=== PATIENT | female | born 1990 | race Caucasian/White ===

== ENCOUNTER 2019-06-02 14:33 | Observation (INO) | payer OTHER ==
[2019-06-02 15:11] VITALS: O2SAT 94
[2019-06-02 16:30] LABS: Hematocrit 35.9 % (35-47); Hemoglobin 12.3 gm/dl (12.0-16.0); Mean Cell Volume 90.7 fl (78-100); Mean Corpuscular Hgb Concent. 34.3 g/dl (32-36); Mean Platelet Volume 11.4 fl (6-9.5); Platelet Count 234 K/mm3 (150-450); Red Blood Count 3.96 M/mm3 (4.1-5.4); Red Cell Distribution Width 13.4 % (11.5-14.0); White Blood Count 15.3 K/mm3 (4.0-10.5)
[2019-06-02 17:21] LABS: ALBUMIN 3.7 g/dL (3.5-5.0); ALKALINE PHOSPHATASE 76 U/L (38-126); ANION GAP 14.9 MEQ/L (5-15); BLOOD UREA NITROGEN 5 mg/dL (7-17); CHLORIDE 104 mmol/L (98-107); Calcium 9.6 mg/dL (8.4-10.2); Carbon Dioxide 24 mmol/L (22-30); Creatinine 1 0.42 mg/dL (0.52-1.04); Glucose 78 mg/dL (74-106); Potassium 3.7 mmol/L (3.5-5.1); SGOT/AST 21 U/L (14-36); SGPT/ALT 15 U/L (0-35); SODIUM 139 mmol/L (137-145); TSH, 3RD Generation 0.895 mIU/L (0.47-4.68)
[2019-06-02 18:45] VITALS: BP 128/74; PULSE 101
== END 2019-06-02 17:55 | disposition home or self-care (01) ==
LOC: OB 14:33
PROVIDERS: ADMIT Family Medicine; ATTEND Family Medicine
DX: Z34.03 Encounter for supervision of normal first pregnancy, third trimester (principal)
CPT/HCPCS: 36415; 80053; 84443; 85027; G0378

== ENCOUNTER 2019-08-03 07:08 | Observation (INO) | payer OTHER ==
--- NOTE | 2019-08-03 08:57 | XRAY ---
Indication: Decreased PENNY. Ultrasound biophysical profile study was performed. Comparison: None. There is a single viable intrauterine with heart rate 142 BPM. Four-quadrant PENNY is 5.9 cm, previously 9.7 cm on July 30, 2019. 2 points given for breathing, movements, tone, and qualitative amniotic fluid volume. Impression: Total biophysical profile score is 8 out of 8.
[2019-08-03] MEDS ORDERED: BRETHINE 1 MG/ML SQ PRN (09:46)
[2019-08-03] MEDS ORDERED: Zofran 4 MG/2 ML VIAL IV PRN (11:58)
[2019-08-03] MEDS ORDERED: TYLENOL EXTRA STRENGTH 500 MG PO PRN (11:58)
[2019-08-03 17:43] LABS: Amphetamine,Urine NEGATIVE (NEGATIVE); Barbiturate,Urine NEGATIVE (NEGATIVE); Benzodiazepine,Urine NEGATIVE (NEGATIVE); Cocaine,Urine NEGATIVE (NEGATIVE); Methadone,Urine NEGATIVE (NEGATIVE); Opiate,Urine NEGATIVE (NEGATIVE); PCP,Urine NEGATIVE (NEGATIVE); THC,Urine NEGATIVE (NEGATIVE)
[2019-08-03] MEDS ORDERED: PITOCIN 30 UNITS/ LR 500 ML 500 ML IV SCH ×2 (22:00)
[2019-08-03] MEDS ORDERED: Lactated Ringers 1,000 ML IV SCH (22:00)
[2019-08-03] MEDS ORDERED: Cervidil 10 MG VAG SCH (22:00)
[2019-08-03 22:36] LABS: Absolute Neutrophil Ct (ANC) 10.32 (1.4-6.9); BASOPHIL % 0.2 % (0.0-0.4); Basophil (Absolute #) 0.03 (0-0.4); Eosinophil % 1.4 % (0.00-5.0); Hematocrit 35.9 % (35-47); Hemoglobin 12.1 gm/dl (12.0-16.0); Mean Cell Volume 91.3 fl (78-100); Mean Corpuscular Hemoglobin 30.8 pg (26-32); Mean Corpuscular Hgb Concent. 33.7 g/dl (32-36); Mean Platelet Volume 11.8 fl (6-9.5); Monocyte (Absolute #) 1.03 (0.0-1.3); Monocytes % 7.1 % (0.0-12.0); Neutrophil % 71.3 % (36.0-66.0); Platelet Count 220 K/mm3 (150-450); Red Blood Count 3.93 M/mm3 (4.1-5.4); Red Cell Distribution Width 13.5 % (11.5-14.0); White Blood Count 14.5 K/mm3 (4.0-10.5)
[2019-08-03] MEDS: Lactated Ringers 1,000 ML IV SCH (22:57)
[2019-08-04] MEDS: Lactated Ringers 1,000 ML IV SCH ×2 (03:51→06:15)
--- NOTE | 2019-08-04 08:34 | PCM.NOTE ---
Date and Time: 08/04/19830 Subjective Assessment: Pt's induction was started yesterday after PENNY or 5.9, decreased reactivity, and pt at 38w 6d. She received cervadil x 12 h then start pitocin in the night. When her pitocin got up to 6, baby had decreased variability and reactivity, so pitocin was stopped. It was restarted again this morning with similar results so was stopped again. Pt feels some mild lower abd cramping this morning. She is having irregular contractions on the monitor. Pt received fluids overnight. Objective Exam General Appearance: no apparent distress, alert Neurologic Exam: oriented x 3, cooperative Skin Exam: normal color, warm, dry, No rash Ears, Nose, Throat Exam: moist mucous membranes Neck Exam: normal inspection Respiratory Exam: No respiratory distress Gastrointestinal/Abdomen Exam: other (abd gravid) Extremity Exam: swelling (trace bilat LE), No tenderness OBJECTIVE DATA Vital Signs: Vital Signs - 24 hr Temp Pulse Resp BP BP 08/04/19 06:45 94 H 112/71 08/04/19 06:30 103 H 124/81 08/04/19 06:15 111 H 130/84 08/04/19 06:00 111 H 130/84 08/04/19 05:45 96 H 123/80 08/04/19 05:30 93 H 116/75 08/04/19 05:15 93 H 111/71 08/04/19 04:45 91 H 128/71 08/04/19 04:30 87 129/70 08/04/19 04:15 90 134/69 08/04/19 04:00 90 135/85 134/69 08/04/19 03:45 98.1 F 81 113/66 08/04/19 03:30 92 H 122/71 08/04/19 03:15 86 114/69 08/04/19 03:00 86 120/75 08/04/19 02:45 82 115/73 08/04/19 02:30 88 122/77 08/04/19 02:15 91 H 121/75 08/04/19 02:00 85 113/66 08/04/19 01:45 85 118/72 08/04/19 01:30 90 120/70 08/04/19 01:15 96 H 126/76 08/04/19 00:00 86 131/81 08/03/19 19:40 98.8 F 99 H 18 126/76 08/03/19 18:00 124 H 16 128/86 08/03/19 14:00 102 H 16 125/81 08/03/19 11:00 96 H 16 134/85 Pain Assessment - Last Documented Pain Scale Used 0-10 Pain Scale Intake and Output: Intake & Output 08/01/19 08/02/19 08/03/19 08/04/19 11:59 11:59 11:59 11:59 Weight 98.883 kg 218 kg Lab Results: Lab Results-Last 24 Hours 08/03/19 08/03/19 Range/Units 17:10 22:36 WBC 14.5 H (4.0-10.5) K/mm3 RBC 3.93 L (4.1-5.4) M/mm3 Hgb 12.1 (12.0-16.0) gm/dl Hct 35.9 (35-47) % MCV 91.3 (78-100) fl MCH 30.8 (26-32) pg MCHC 33.7 (32-36) g/dl RDW 13.5 (11.5-14.0) % Plt Count 220 (150-450) K/mm3 MPV 11.8 H (6-9.5) fl Gran % 71.3 H (36.0-66.0) % Eos # (Auto) 0.20 (0-0.5) Absolute Lymphs (auto) 2.90 (1.0-4.6) Absolute Monos (auto) 1.03 (0.0-1.3) Lymphocytes % 20.0 L (24.0-44.0) % Monocytes % 7.1 (0.0-12.0) % Eosinophils % 1.4 (0.00-5.0) % Basophils % 0.2 (0.0-0.4) % Absolute Granulocytes 10.32 H (1.4-6.9) Basophils # 0.03 (0-0.4) Urine Opiates Level NEGATIVE (NEGATIVE) Ur Methadone NEGATIVE (NEGATIVE) Urine Barbiturates NEGATIVE (NEGATIVE) Ur Phencyclidine (PCP) NEGATIVE (NEGATIVE) Urine Amphetamine NEGATIVE (NEGATIVE) U Benzodiazepine Level NEGATIVE (NEGATIVE) Urine Cocaine NEGATIVE (NEGATIVE) Urine Marijuana (THC) NEGATIVE (NEGATIVE) Radiology Exams: Radiology Procedures Category Date Time Status OB BIOPHYSICAL W/O NON STRESS [US] Stat Exams 08/03/19 08:31 Completed OB BIOPHYSICAL W/O NON STRESS [US] Stat Exams 08/04/19 07:45 Ordered Assessment/Plan (1) Current Visit: Yes Status: Acute Qualifiers: Weeks of gestation: 38 weeks Qualified Code(s): Z3A.38 - 38 weeks gestation of Assessment & Plan: She is not progressing, baby is not tolerating the labor well. Check another BPP, if fluid is up she may be able to go home and try induction later if necessary. Code(s): Z34.90 - ENCNTR FOR SUPRVSN OF NORMAL , UNSP, UNSP TRIMESTER
--- NOTE | 2019-08-04 08:39 | PCM.DS ---
Discharge Summary Date of Admission: 08/03/19 07:08 Admitting Physician: SUSY CLARKE Primary Care Provider: SUSY CLARKE Allergies Allergies Penicillins Allergy (Verified 06/02/19 17:05) [facility] Summary - Hospital Course Hospital Course: Pt is 29 yo at 39 weeks who was found to have PENNY of 5.9 yesterday with decreased reactivity so was induced with cervadil and pitocin. Baby did not tolerate pitocin well but off the pitocin looked fine. BPP done again this morning with PENNY 6.7 so sending pt home and f/u with another NST/BPP in 2 days ( Friday). Pt advised to drink plenty of water. - Vitals & Intake/Output Vital Signs: Vital Signs Temperature 98.1 F 08/04/19 03:45 Pulse Rate 94 H 08/04/19 06:45 Respiratory Rate 18 08/03/19 19:40 Blood Pressure 112/71 08/04/19 06:45 O2 Sat by Pulse Oximetry Intake & Output: Intake & Output 08/01/19 08/02/19 08/03/19 08/04/19 11:59 11:59 11:59 11:59 Weight 98.883 kg 218 kg - Lab Result Diagrams: 08/03/19 22:36 Lab Results-Last 24 Hrs: Lab Results-Last 24 Hours 08/03/19 08/03/19 Range/Units 17:10 22:36 WBC 14.5 H (4.0-10.5) K/mm3 RBC 3.93 L (4.1-5.4) M/mm3 Hgb 12.1 (12.0-16.0) gm/dl Hct 35.9 (35-47) % MCV 91.3 (78-100) fl MCH 30.8 (26-32) pg MCHC 33.7 (32-36) g/dl RDW 13.5 (11.5-14.0) % Plt Count 220 (150-450) K/mm3 MPV 11.8 H (6-9.5) fl Gran % 71.3 H (36.0-66.0) % Eos # (Auto) 0.20 (0-0.5) Absolute Lymphs (auto) 2.90 (1.0-4.6) Absolute Monos (auto) 1.03 (0.0-1.3) Lymphocytes % 20.0 L (24.0-44.0) % Monocytes % 7.1 (0.0-12.0) % Eosinophils % 1.4 (0.00-5.0) % Basophils % 0.2 (0.0-0.4) % Absolute Granulocytes 10.32 H (1.4-6.9) Basophils # 0.03 (0-0.4) Urine Opiates Level NEGATIVE (NEGATIVE) Ur Methadone NEGATIVE (NEGATIVE) Urine Barbiturates NEGATIVE (NEGATIVE) Ur Phencyclidine (PCP) NEGATIVE (NEGATIVE) Urine Amphetamine NEGATIVE (NEGATIVE) U Benzodiazepine Level NEGATIVE (NEGATIVE) Urine Cocaine NEGATIVE (NEGATIVE) Urine Marijuana (THC) NEGATIVE (NEGATIVE) - Radiology Exams Ordered Rad Exams-Entire Visit: Radiology Procedures Category Date Time Status OB BIOPHYSICAL W/O NON STRESS [US] Stat Exams 08/03/19 08:31 Completed OB BIOPHYSICAL W/O NON STRESS [US] Stat Exams 08/04/19 07:45 Ordered Discharge Exam General Appearance: no apparent distress, alert Neurologic Exam: oriented x 3, cooperative Eye Exam: eyes nml inspection Ears, Nose, Throat Exam: moist mucous membranes Neck Exam: normal inspection Respiratory Exam: No respiratory distress Gastrointestinal/Abdomen Exam: other (gravid) Extremity Exam: swelling (trace bilat) Skin Exam: normal color, warm, dry, No rash Final Diagnosis/Problem List - Final Discharge Diagnosis/Problem (1) Current Visit: Yes Status: Acute Assessment & Plan: Failed induction, but baby is looking better so will send her home, will observe with NSTs and BPP. F/u with me next week. Will have BPP on Friday and plan again on Fri or next week. Code(s): Z34.90 - ENCNTR FOR SUPRVSN OF NORMAL , UNSP, UNSP TRIMESTER - Discharge Disposition: Home, Self-Care Condition: Stable Prescriptions: No Action Vits W-Ca,Fe,FA(<1Mg) [] 1 each PO HS Follow up with: SUSY CLARKE [Primary Care Provider] - 1 Week
[2019-08-04 09:25] VITALS: BP 117/81; PULSE 97
--- NOTE | 2019-08-04 09:52 | XRAY ---
Indication: well-being. Ultrasound biophysical profile study was performed. Comparison: One day earlier. Again single viable intrauterine with heart rate 134 BPM. Four-quadrant PENNY is 6.7 cm, previously 5.9 cm. 2 points given for breathing, movements, tone, and qualitative amniotic fluid volume. Impression: Again total biophysical profile score is 8 out of 8.
== END 2019-08-04 08:50 | disposition home or self-care (01) ==
LOC: UNDOADMOB 07:08 → OB 07:08
PROVIDERS: ADMIT Family Medicine; ATTEND Family Medicine
DX: O41.03X0 Oligohydramnios, third trimester, not applicable or unspecified (principal); O61.0 Failed medical induction of labor; Z3A.39 39 weeks gestation of pregnancy
CPT/HCPCS: 36415; 59025; 76819; 80307; 85025; 87340; G0378; J2590

== ENCOUNTER 2019-08-06 10:56 | Observation (INO) | payer OTHER ==
[2019-08-06 11:57] VITALS: BP 131/84; PULSE 95; O2SAT 98
--- NOTE | 2019-08-06 19:12 | XRAY ---
Indication: Decreased PENNY. Ultrasound biophysical profile study performed. Comparison: 2 days ago. Again there is a single viable intrauterine with heart rate 127 BPM. Four-quadrant PENNY is 6.4 cm, previously 6.7 cm. 2 points given for breathing, movements, tone, and qualitative amniotic fluid volume. Impression: Again total biophysical profile score is 8 out of 8.
== END 2019-08-06 12:40 | disposition home or self-care (01) ==
LOC: OB 10:56
PROVIDERS: ADMIT Family Medicine; ATTEND Family Medicine
DX: Z34.03 Encounter for supervision of normal first pregnancy, third trimester (principal)
CPT/HCPCS: 59025; 76819; G0378

== ENCOUNTER 2019-08-09 08:01 | Inpatient (IN) | payer OTHER ==
--- NOTE | 2019-08-09 10:47 | XRAY ---
Indication: well-being. Ultrasound biophysical profile study was performed. Comparison: 3 days ago. Again there is a single intrauterine with heart rate 141 BPM. Four-quadrant PENNY is 5.5 cm, previously 6.4 cm. 2 points given for breathing and qualitative amniotic fluid volume. 0 points given for movement and tone. Impression: Total biophysical profile score is now 4 out of 8. Comment: Telephone report given to ordering clinician's assistant pressmanVidya at 1042 hrs. on August 09, 2019.
[2019-08-09] MEDS ORDERED: BRETHINE 1 MG/ML SQ PRN (11:00)
[2019-08-09] MEDS ORDERED: PITOCIN 30 UNITS/ LR 500 ML 30 UNITS/500 ML IV.SOLN. IV SCH (11:15)
[2019-08-09] MEDS ORDERED: XYLOCAINE 1% HCL 20 ML MDV IJ PRN (11:15)
[2019-08-09] MEDS: Cervidil 10 MG VAG SCH ×2 (12:14→12:20)
[2019-08-09 16:13] LABS: Absolute Neutrophil Ct (ANC) 9.88 (1.4-6.9); BASOPHIL % 0.2 % (0.0-0.4); Basophil (Absolute #) 0.02 (0-0.4); Eosinophil % 1.6 % (0.00-5.0); Eosinophil (Absolute #) 0.21 (0-0.5); Hemoglobin 12.9 gm/dl (12.0-16.0); Lymphocyte (Absolute #) 2.12 (1.0-4.6); Lymphocytes % 16.4 % (24.0-44.0); Mean Cell Volume 91.1 fl (78-100); Mean Corpuscular Hemoglobin 30.9 pg (26-32); Mean Corpuscular Hgb Concent. 33.9 g/dl (32-36); Mean Platelet Volume 12.4 fl (6-9.5); Monocyte (Absolute #) 0.67 (0.0-1.3); Monocytes % 5.2 % (0.0-12.0); Neutrophil % 76.6 % (36.0-66.0); Platelet Count 237 K/mm3 (150-450); Red Blood Count 4.17 M/mm3 (4.1-5.4); Red Cell Distribution Width 13.4 % (11.5-14.0); White Blood Count 12.9 K/mm3 (4.0-10.5)
[2019-08-09] MEDS: Lactated Ringers 1,000 ML IV SCH (19:49)
[2019-08-09] MEDS ORDERED: Lactated Ringers 1,000 ML IV SCH (20:00)
[2019-08-09] MEDS ORDERED: Cervidil 10 MG VAG SCH (22:00)
[2019-08-10] MEDS: Lactated Ringers 1,000 ML IV SCH ×3 (03:55→10:20)
[2019-08-10 08:53] LABS: INR 0.96 (0.8-3.0); PROTIME 10.8 SECONDS (9.95-12.35)
[2019-08-10] MEDS ORDERED: LANSINOH 40 GM TOP PRN (08:54)
[2019-08-10] MEDS ORDERED: Mylicon 80MG PO PRN (08:54)
[2019-08-10] MEDS ORDERED: Phenergan 25 MG INJ IM PRN (08:54)
[2019-08-10 08:55] LABS: PTT 20.4 SECONDS (25.3-37.0)
[2019-08-10] MEDS ORDERED: CLINDAMYCIN-D5W 900 MG/50 ML*** 900 MG/50 ML BAG IV SCH (09:00)
[2019-08-10] MEDS ORDERED: Reglan 10 MG/2 ML IV SCH (09:00)
[2019-08-10] MEDS ORDERED: Pepcid 20 MG VIAL IV SCH (09:00)
[2019-08-10] MEDS ORDERED: BICITRA 30 ML CUP PO SCH (09:00)
[2019-08-10] MEDS ORDERED: BENADRYL 50 MG/ML IV PRN (09:04)
[2019-08-10] MEDS ORDERED: CLARITIN 10 MG PO PRN (09:04)
[2019-08-10] MEDS ORDERED: MORPHINE SULFATE 2 MG INJ IV PRN (09:04)
[2019-08-10] MEDS ORDERED: Zofran 4 MG/2 ML VIAL IV PRN (09:04)
[2019-08-10] MEDS ORDERED: PERCOCET TABLET 5/325MG PO PRN (09:04)
[2019-08-10] MEDS ORDERED: HOLD NARCOTIC ANALGESICS AND SEDATIVES X24 HR MC PRN (09:04)
[2019-08-10 09:48] LABS: ABO TYPING A; Antibody Screen NEGATIVE (NEGATIVE); RH TYPING POSITIVE
[2019-08-10] MEDS ORDERED: Pitocin 10 UNITS/ML ONE ×2 (10:50→11:45)
[2019-08-10] MEDS ORDERED: Astramorph-Pf 5 MG/10 ML ONE (10:50)
[2019-08-10] MEDS ORDERED: PHENYLEPHRINE HCL ONE (10:50)
[2019-08-10] MEDS ORDERED: Lactated Ringers 1,000 ML IV ONE (10:51)
[2019-08-10] MEDS ORDERED: Xylocaine-Mpf 2% 5 Ml Vial ONE (11:20)
[2019-08-10] MEDS ORDERED: MARCAINE 0.5%-EPI 1:200,000 VL IJ ONE (11:43)
[2019-08-10] MEDS ORDERED: Marcaine 0.5%/Epinephrine 10 ML ONE (11:43)
[2019-08-10 12:40] LABS: Appearance CLEAR (CLEAR); Bilirubin NEGATIVE (NEGATIVE); Blood NEGATIVE Ery/ul (0-5); Glucose NEGATIVE (NEGATIVE); Ketones NEGATIVE (NEGATIVE); Leukocyte Esterase NEGATIVE (NEGATIVE); Nitrite NEGATIVE (NEGATIVE); Protein,Urine Dip NEGATIVE (Negative); Specific Gravity 1.008 (1.005-1.025); Urobilinogen NEGATIVE mg/dL (0-1)
[2019-08-10] MEDS: Dextrose 5%-Lr IV Solution 1000 ML 1,000 ML IV SCH ×2 (14:29→22:22)
[2019-08-10] MEDS ORDERED: Compazine 10 MG/2 ML IV ONE (14:30)
[2019-08-10] MEDS: MOTRIN 400 MG PO PRN (19:24)
[2019-08-10] MEDS: Colace 100 MG PO SCH ×2 (22:22→22:24)
[2019-08-11 05:09] LABS: Absolute Neutrophil Ct (ANC) 9.83 (1.4-6.9); BASOPHIL % 0.2 % (0.0-0.4); Basophil (Absolute #) 0.02 (0-0.4); Eosinophil % 1.3 % (0.00-5.0); Eosinophil (Absolute #) 0.17 (0-0.5); Hematocrit 30.8 % (35-47); Hemoglobin 10.4 gm/dl (12.0-16.0); Lymphocyte (Absolute #) 2.15 (1.0-4.6); Lymphocytes % 16.5 % (24.0-44.0); Mean Cell Volume 91.1 fl (78-100); Mean Corpuscular Hemoglobin 30.8 pg (26-32); Mean Corpuscular Hgb Concent. 33.8 g/dl (32-36); Mean Platelet Volume 11.5 fl (6-9.5); Monocyte (Absolute #) 0.87 (0.0-1.3); Monocytes % 6.7 % (0.0-12.0); Neutrophil % 75.3 % (36.0-66.0); Platelet Count 176 K/mm3 (150-450); Red Blood Count 3.38 M/mm3 (4.1-5.4); Red Cell Distribution Width 13.2 % (11.5-14.0)
[2019-08-11] MEDS: MOTRIN 400 MG PO PRN ×3 (07:56→21:12)
[2019-08-11 09:06] VITALS: O2SAT 98
--- NOTE | 2019-08-11 09:38 | OP ---
SURGERY DATE/TIME: 08/10/2019 1059 PREOPERATIVE DIAGNOSIS: Intrauterine at 39 weeks and 6 days gestation with non-reassuring heart rate tracing and arrest of dilatation. POSTOPERATIVE DIAGNOSIS: Intrauterine at 39 weeks and 6 days gestation with non-reassuring heart rate tracing and arrest of dilatation with meconium. PROCEDURE: Primary section, low transverse uterine incision, Pfannenstiel skin incision. SURGEON: Jorge Ramos D.O. PROFESSIONAL ARCHITECT: Dr. Stacy Garcia ANESTHESIA: Spinal. ESTIMATED BLOOD LOSS: 600 cc. COMPLICATIONS: None. INDICATIONS: The risks, benefits, indications and alternatives of the procedure were reviewed with the patient prior to procedure. The patient understood the risk of infection, bleeding, bowel injury, bladder injury, ureteral injury, incisional hernia associated with the surgery and desires to have this surgery as a possible need to alleviate her current medical condition. DESCRIPTION OF PROCEDURE AND FINDINGS: At this point the patient is taken to the operating room where her spinal anesthesia was found to adequate. She was then prepped and draped in normal sterile fashion in the dorsal supine position with a leftward tilt. A Pfannenstiel skin incision is made with a scalpel and then carried through the underlying layer of the fascia with a Bovie. The fascia was then incised in the midline and the incision extended laterally with Dow scissors. The superior aspect of the fascial incision was then grasped Elsa clamps elevated and the underlying rectus muscles dissected off bluntly. Attention is then turned to the inferior aspect of this incision which in similar fashion was grasped, tented up with Elsa clamps and the rectus muscles and dissected off bluntly. The rectus muscles were then at the midline and the peritoneum identified, tented up and entered sharply with Metzenbaum scissors. The peritoneum incision was then extended superiorly and inferiorly with good visualization of the bladder. The bladder blade was then inserted and the vesicouterine peritoneum identified, grasped with a pickup and entered sharply with Metzenbaum scissors. This incision was then extended laterally and bladder flap created medially. The bladder blade was then re-inserted and the lower uterine segment incised in transverse fashion with a scalpel. The uterine incision was then extended laterally with bandage scissors. The bladder blade was then removed. The infant's head was delivered atraumatically. However there was noted to be meconium at the site of incision. The nose and mouth were suctioned with DeLee suction cup and cord clamped and cut. The was then handed off to the awaiting nurses. The placenta was then removed manually. The uterus exteriorized and cleared of all clots and debris. The uterine incision was repaired with 1-0 chromic interlocked fashion. A second layer of the same suture was used to obtain excellent hemostasis. The uterus is then returned to the abdomen. The gutters were cleared of clots. The peritoneum closed in interrupted fashion using 2-0 chromic suture. The fascia was re-approximated with 0 chromic in running fashion. The skin was closed with absorbable navin called INSORB. The patient tolerated the procedure well. Sponge, lap, needle and instrument counts were correct x2. The patient was then taken to the recovery room in stable condition. The patient had live baby girl at 1133 hours, weight 6 pounds 3 ounces and 's were 8 at 1 minute and 9 at 5 minutes.
[2019-08-11] MEDS ORDERED: DEMEROL 50 MG IV PRN (10:00)
[2019-08-11] MEDS ORDERED: NORCO 5/325 MG PO PRN (10:00)
[2019-08-11] MEDS: Colace 100 MG PO SCH ×2 (13:26→21:12)
[2019-08-11] MEDS: FERREX 150 PO SCH ×2 (13:26→16:49)
[2019-08-11] MEDS: TYLENOL EXTRA STRENGTH 500 MG PO PRN (16:33)
[2019-08-12] MEDS: TYLENOL EXTRA STRENGTH 500 MG PO PRN ×2 (00:21→08:03)
[2019-08-12] MEDS: MOTRIN 400 MG PO PRN (04:25)
--- NOTE | 2019-08-12 08:02 | PCM.DS ---
Discharge Summary Date of Admission: 08/10/19 08:58 Admitting Physician: SUSY CLARKE Consults: Consults on Case 08/10/19 08:03 Notify Physician OF ADMISSION 08/10/19 09:04 Notify Anesthesia Provider PRN Primary Care Provider: SUSY CLARKE Allergies Allergies Penicillins Allergy (Verified 06/02/19 17:05) [facility] Summary - Hospital Course Hospital Course: Pt is 29 yo who came in at 39+ weeks for nonstress test/BPP; BPP was only 4/8 so she was induced with cervadil. Pitocin was started but she had nonreassuring FHT and her cervix was still high and posterior, so she was taken to with Dr. Ramos (for full details, see his operative note). Baby had light meconium in the fluid; she weighed 6lb 3 oz and had apgars of 8 at 1 minute and 9 at 5 minutes. Baby is some, but mom started supplementing with formula last night. Pt has hx of sinus tachycardia, intermittently, for which she has seen cardiology, but no further workup is planned. Was not an issue during this stay. Pt is up out of bed without issues. Bleeding has decreased. Tolerating po. She does not want any narcotics to go home on and has not been taking any here. - Vitals & Intake/Output Vital Signs: Vital Signs Temperature 97.9 F 08/12/19 04:00 Pulse Rate 81 08/12/19 04:00 Respiratory Rate 20 08/12/19 04:00 Blood Pressure 141/76 08/12/19 04:00 O2 Sat by Pulse Oximetry 98 08/11/19 08:00 Intake & Output: Intake & Output 08/09/19 08/10/19 08/11/19 08/12/19 11:59 11:59 11:59 11:59 Intake Total 4225 6917 1200 Output Total 1700 Balance 4225 5217 1200 Weight 98.883 kg - Lab Result Diagrams: 08/11/19 05:07 Micro Results-Entire Visit: Microbiology 08/10/19 11:22 Urine Culture - Preliminary Urine, Catheterized NO GROWTH TO DATE - Procedures and Test Procedures and Tests throughout Hospitalization: Therapy Orders & Screens 08/10/19 11:33 Standby STAT Comment: Diagnosis: IOL Discharge Exam General Appearance: no apparent distress, alert Neurologic Exam: oriented x 3, cooperative Eye Exam: eyes nml inspection Ears, Nose, Throat Exam: moist mucous membranes Respiratory Exam: normal breath sounds, lungs clear, No crackles/rales, No rhonchi, No wheezing Cardiovascular Exam: regular rate/rhythm, normal heart sounds, No murmur Gastrointestinal/Abdomen Exam: soft, other (wound is c/d/i, no erythema), No distention Extremity Exam: normal inspection, No swelling Skin Exam: normal color, warm, dry, No rash Final Diagnosis/Problem List - Final Discharge Diagnosis/Problem (1) delivery delivered Current Visit: Yes Status: Acute Assessment & Plan: Doing great, POD #2. Home today with baby; no narcotics per pt request (family members had a reaction to narcotics in the past). F/u with Dr. Ramos in 1 week. Code(s): O82 - ENCOUNTER FOR DELIVERY WITHOUT INDICATION (2) Anemia Current Visit: Yes Status: Acute Assessment & Plan: Home on iron. Code(s): D64.9 - ANEMIA, UNSPECIFIED - Discharge Disposition: Home, Self-Care Condition: Good Prescriptions: New Ferrous Sulfate 325 mg [Feosol 325 mg] 325 mg PO DAILY #30 tablet Ibuprofen 800 mg PO TID PRN #35 tablet PRN Reason: Pain Continue Vits W-Ca,Fe,FA(<1Mg) [] 1 each PO HS Additional Instructions: Any elevated temperature or increase in pain or bleeding, please call MD right away. Follow up with: SUSY CLARKE [Primary Care Provider] - 1 Week
[2019-08-12] MEDS: Colace 100 MG PO SCH (09:43)
[2019-08-12] MEDS: FERREX 150 PO SCH (09:43)
[2019-08-12 09:58] VITALS: BP 135/86; PULSE 104
== END 2019-08-12 12:40 | disposition home or self-care (01) | DRG 787 ==
LOC: OB 08:01 → UNDOADMOB 08:01 → OB 08:58 → OBSVTOIN 08:58 → INTOOBSV 08:58 → OBSVTOIN 08-10 08:58 → UNDOADMOB 08-10 08:58 → OB 08-10 08:58 → INTOOBSV 08-10 08:58
PROVIDERS: ADMIT Family Medicine; ATTEND Family Medicine
PROC: 10D00Z1 Extraction of Products of Conception, Low, Open Approach (ICD-10-PCS; principal; 2019-08-10)
DX: O76 Abnormality in fetal heart rate and rhythm complicating labor and delivery (principal); O41.03X0 Oligohydramnios, third trimester, not applicable or unspecified; Z3A.39 39 weeks gestation of pregnancy; Z37.0 Single live birth
CPT/HCPCS: 36415; 59025; 62322; 64488; 76819; 76937; 76942; 81001; 85025; 85610; 85730; 86850; 86900; 86901; 87086; 94799; G0378; J2274; J2370; J2405; J2590; A9270-GY